=== PATIENT | female | born 1975 | race Asian ===

== ENCOUNTER 2019-07-24 12:49 | Emergency (ER) | payer SELFPAY ==
[2019-07-24] MEDS ORDERED: DIPHTH,PERTUSS(ACELL),TET 0.5 ML DISP.SYRIN IM ONE ×2 (13:06→13:10)
[2019-07-24 13:09] VITALS: BP 104/69; PULSE 86; TEMP 98; BMI 22.4
--- NOTE | 2019-07-24 13:20 | PDOC ---
History of Present Illness - General Chief Complaint: Laceration Stated Complaint: CUT TO LEFT THUMB SUSTAINED ON SLICER Time Seen by Provider: 07/24/19 12:54 - History of Present Illness Initial Comments: 07/24/19 13:26 44f with no pmh, presents to the ED with small laceration to the left thumb while she was peeling vegetables. She stopped the bleeding with an orange, aromatic traditional [place]ian clotting powder. Part of the nail has been chipped. Past History - Past Medical History Allergies/Adverse Reactions: Allergies Allergy/AdvReac Type Severity Reaction Status Date / Time No Known Allergies Allergy Unverified 07/24/19 12:51 Home Medications: Ambulatory Orders NK [No Known Home Medication] 07/24/19 COPD: No Other medical history: DENIE - Immunization History Immunization Up to Date: (UNKNOWN) - Suicide/Smoking/Psychosocial Hx Smoking History: Never smoked Information on smoking cessation initiated: No Hx Alcohol Use: Yes (SOCIAL) Drug/Substance Use Hx: No Review of Systems - Review of Systems Able to Perform ROS?: Yes Is the patient limited Estonian proficient: No Integumentary: Yes: See HPI Neurological: No: Symptoms reported All Other Systems: Reviewed and Negative *Physical Exam - Vital Signs Last Vital Signs Temp Pulse Resp BP Pulse Ox 98 F 86 16 104/69 100 07/24/19 12:51 07/24/19 12:51 07/24/19 12:51 07/24/19 12:51 07/24/19 12:51 - Physical Exam Integumentary: positive: Other (1cm closed laceration to the left medial thumb, not bleeding, orange [place]ian powder over the wound ) Neurologic: positive: Alert ED Treatment Course - Medications Given in the ED: ED Medications Discontinued Medications Generic Name Dose Route Start Last Admin Trade Name Freq PRN Reason Stop Dose Admin Diphtheria/Tetanus/Acell Pertussis 0.5 ml 07/24/19 13:06 07/24/19 13:14 Boostrix - IM 07/24/19 13:07 0.5 ml .ONCE ONE Administration Medical Decision Making - Medical Decision Making 07/24/19 13:34 Will give patient Boostrix, bacitracin for the wound. Will not dislodge the clot that the patient treated herself. OK to dc with follow up. *DC/Admit/Observation/Transfer Diagnosis at time of Disposition: Thumb laceration - Discharge Dispostion Disposition: HOME Condition at time of disposition: Stable Decision to Admit order: No - Referrals - Patient Instructions Printed Discharge Instructions: DI for Laceration Repair Additional Instructions: Come back to the emergency department for any new, worsening or concerning symptom. Follow up with your primary doctor within the next 2-3 days. - Post Discharge Activity
--- NOTE | 2019-07-24 13:26 | PDOC ---
Attending Attestation - Resident Resident Name: Román Castro - ED Attending Attestation I have performed the following: I have examined & evaluated the patient, The case was reviewed & discussed with the resident, I agree w/resident's findings & plan - HPI HPI: 07/24/19 13:21 44 y/o female cut her left thumb today on a Mandolin. Bleeding controlled. Patient not up to date with Tetanus. Patient used herbal remedy to stop the bleeding. Mild pain, but no swelling. Feels fineotherwise. - Physicial Exam PE: 07/24/19 13:22 VS stable HEENT: unremarkable Heart: RRR w/o murmur Lungs: CTA b/l no wheezes rhonchi or rales Ext: left thumb with superficial avulsion of skin and partial nail, bleeding controlled with medicine used by patient, no redness or swelling, full ROM of leeft thumb noted Neuro: strength 5+/5 b/l in UE, no focal deficits noted - Medical Decision Making 07/24/19 13:24 Left thumb laceration Area cleaned, will recommend dressing changes Tetauns given Tylenol, rest If worsen return to ER Final Dx: left thumb laceration Agree with plan and Dx of Dr. Castro, resident
== END 2019-07-24 13:43 | disposition home or self-care (01) ==
LOC: FER 12:49
PROC: 3E0234Z Introduction of Serum, Toxoid and Vaccine into Muscle, Percutaneous Approach (ICD-10-PCS; principal; 2019-07-24)
DX: S61.012A Laceration without foreign body of left thumb without damage to nail, initial encounter (principal); W31.9XXA Contact with unspecified machinery, initial encounter; Y93.89 Activity, other specified; Y92.89 Other specified places as the place of occurrence of the external cause; Y99.0 Civilian activity done for income or pay
CPT/HCPCS: 90715; 99282-25